=== PATIENT | male | born 1990 | race Caucasian/White ===

== ENCOUNTER 2020-08-10 03:25 | Emergency (ER) | payer SELFPAY ==
[~2020-08-10] VITALS: Ht 172.7 cm; Wt 68.2 kg
[2020-08-10] MEDS ORDERED: HydrOXYzine PAMOATE 25 MG CAPSULE PO ONE (04:00)
[2020-08-10 05:00] VITALS: BP 119/82
== END 2020-08-10 05:09 | disposition home or self-care (01) ==
LOC: EMS 03:31
DX: F41.9 Anxiety disorder, unspecified (principal); R06.02 Shortness of breath; R00.2 Palpitations; F17.210 Nicotine dependence, cigarettes, uncomplicated; F12.90 Cannabis use, unspecified, uncomplicated
CPT/HCPCS: 93005; 99283